=== PATIENT | male | born 1955 | race Hispanic/Latino ===

== ENCOUNTER 2016-07-14 14:48 | Outpatient (CLI) | payer BC ==
--- NOTE | 2016-07-14 15:09 | XRay Report ---
LEFT KNEE, 3 VIEWS History: Left knee pain. Findings: Mild to moderate osteoarthritic changes are identified in the medial compartment and patellofemoral space. Mild tibial spine spurring. No evidence for fracture, osteochondral defect or large joint effusion. Impression: Bicompartmental osteoarthritic changes.
== END 2016-07-14 14:49 | disposition home or self-care (01) ==
LOC: SPVIMAG 14:48
PROVIDERS: ATTEND Internal Medicine
DX: M25.562 Pain in left knee (principal)

== ENCOUNTER 2016-11-09 15:01 | Outpatient (CLI) | payer BC ==
--- NOTE | 2016-11-10 11:35 | XRay Report ---
XRAY CERVICAL SPINE THREE VIEWS: 11/09/16 15:01:00 CLINICAL: Radicular neuropathy. FINDINGS: Normal vertebral body alignment through T1. The cervical spine inferior to C5 is not well imaged. Large anterior osteophytes are identified from C2-3 through C5-6. The disc spaces are preserved. The facet joints are normal at C2-3, C3-4 and C4-5. The pedicles are intact. No fracture. The odontoid and C1 are normal. IMPRESSION: Extensive spondylosis from C2-3 through C5-6. Less than optimal imaging of the lower cervical spine cause of elevation of the shoulders. Consider MRI or CT to better evaluate the C6-7 and C7-T1 levels.
--- NOTE | 2016-11-10 14:16 | XRay Report ---
XRAY LUMBAR SPINE WITH OBLIQUES 5 VIEWS: 11/09/16 15:01:00 CLINICAL: Radicular neuropathy. FINDINGS: The quality of the examination is degraded by respiratory motion. Normal vertebral body height and alignment. Disc space narrowing at L5-S1. The rest of the disc spaces are intact. Large anterior osteophytes with flowing anterior ossification from L1-2 through L4-5. No fracture. Multilevel facet joint sclerosis. Mild levoscoliosis. IMPRESSION: Mild scoliosis and multilevel degenerative change. L5-S1 degenerative disc disease and multilevel facet joint arthropathy.
== END 2016-11-09 15:02 | disposition home or self-care (01) ==
LOC: SPVIMAG 15:01
PROVIDERS: ATTEND Internal Medicine
DX: M51.17 Intervertebral disc disorders with radiculopathy, lumbosacral region (principal); M47.27 Other spondylosis with radiculopathy, lumbosacral region; M41.87 Other forms of scoliosis, lumbosacral region; M25.78 Osteophyte, vertebrae; M47.22 Other spondylosis with radiculopathy, cervical region
CPT/HCPCS: 72040; 72110

== ENCOUNTER 2016-11-24 14:59 | Outpatient (CLI) | payer BC ==
--- NOTE | 2016-11-24 15:32 | XRay Report ---
LEFT HIP RADIOGRAPHS INDICATION: Hip pain. COMPARISON: None similar. FINDINGS: AP pelvic radiograph and a frog-leg projection of the left hip demonstrate normal femoral head contours bilaterally, well located within the acetabulae. Mild joint space narrowing possible. Mild acetabular spurring, left more than right. Bilateral iliac enthesophytes. Demineralized bones. Lower lumbar degenerative spurring. Intact pelvic articulation, including the SI joints. Nonobstructive bowel gas pattern. Few scrotal surgical clips. CONCLUSION: No acute radiographic abnormality with various bony degenerative changes, as above. Thank you for the opportunity to participate in this patient's care.
== END 2016-11-24 15:00 | disposition home or self-care (01) ==
LOC: SPVIMAG 14:59
PROVIDERS: ATTEND Internal Medicine
DX: M16.12 Unilateral primary osteoarthritis, left hip (principal); M25.852 Other specified joint disorders, left hip